=== PATIENT | female | born 1955 | race Caucasian/White ===

== ENCOUNTER 2018-06-08 09:56 | Outpatient (CLI) | payer BC ==
--- NOTE | 2018-06-08 11:30 | MMO ---
BILATERAL SCREENING MAMMOGRAMS: Comparison: 2011 This study is interpreted with the assistance of computer aided detection. FINDINGS: Scattered fibroglandular densities. Scattered benign appearing calcifications and vascular calcificat ions are noted. No evidence of mass or distortion. No suspicious calcification. No interval change. R ecommend one year follow up. IMPRESSION: BIRADS 2 - benign findings. POS: ADDIS
== END 2018-06-08 09:57 | disposition home or self-care (01) ==
LOC: SCSMAMMO 09:56
PROVIDERS: ATTEND Family Medicine
DX: Z12.31 Encounter for screening mammogram for malignant neoplasm of breast (principal)
CPT/HCPCS: 77067

== ENCOUNTER 2023-08-08 07:24 | Outpatient (CLI) | payer BC, MEDICARE | END 2023-08-08 07:25 | disposition home or self-care (01) | LOC: NM 07:24 | PROVIDERS: ATTEND Physician Assistant Medical | DX: K52.9 Noninfective gastroenteritis and colitis, unspecified (principal); R19.8 Other specified symptoms and signs involving the digestive system and abdomen; R25.1 Tremor, unspecified | CPT/HCPCS: 78264; A9541 ==

== ENCOUNTER 2023-08-11 08:44 | Outpatient (CLI) | payer BC, MEDICARE | END 2023-08-11 08:45 | disposition home or self-care (01) | LOC: RAD 08:44 | PROVIDERS: ATTEND Physician Assistant Medical | DX: K52.9 Noninfective gastroenteritis and colitis, unspecified (principal); R19.8 Other specified symptoms and signs involving the digestive system and abdomen; R25.1 Tremor, unspecified | CPT/HCPCS: 74220 ==